=== PATIENT | female | born 1970 | race Hispanic/Latino ===

== ENCOUNTER 2019-02-02 00:58 | Emergency (ER) | payer MEDICARE ==
[2019-02-02] MEDS ORDERED: KETOROLAC TROMETHAMINE 60 MG/2 ML VIAL ONE (01:58)
== END 2019-02-02 02:07 | disposition left against medical advice (07) ==
LOC: EDH 00:58
DX: R07.9 Chest pain, unspecified (principal); E11.9 Type 2 diabetes mellitus without complications; Z79.4 Long term (current) use of insulin; Z72.0 Tobacco use
CPT/HCPCS: 93005; 99283; J1885